=== PATIENT | male | born 1960 | race Caucasian/White ===

== ENCOUNTER 2016-10-19 23:17 | Emergency (ER) | payer BC ==
[~2016-10-19] VITALS: Ht 172.7 cm; Wt 104.3 kg
[2016-10-19 23:20] VITALS: BP 155/93
--- NOTE | 2016-10-19 23:49 | NUR ---
TO ER BED 4
--- NOTE | 2016-10-19 23:52 | NUR ---
PATIENT PRESENTS TO ED WITH RUQ ABD PAIN . PT STATES HE CURRENTLY IS NAUSEOUS AND HAS HAD THE SHAPR, CONSTANT ABD PAIN SINCE YESTERDAY. PT REPORTS HAVING A REGULAR BOWEL MOVEMENT X2 TODAY . DENIES V/D; SKIN IS PINK/WARM/DRY; AAOX4 WITH EVEN AND STEADY GAIT; LUNGS CLEAR BL; HR EVEN AND REGULAR; PT DENIES ANY FEVER, CP, SOB, OR COUGH AT THIS TIME; PATIENT STATES PAIN OF 9/10 AT THIS TIME; VSS; PATIENT POSITIONED FOR COMFORT; HOB ELEVATED; BEDRAILS UP X2; BED DOWN. ER MD MADE AWARE OF PT STATUS. AT BEDSIDE
[2016-10-19] MEDS ORDERED: NACL 0.9% 500 ML IV ONE ×2 (23:53)
[2016-10-19] MEDS ORDERED: KETOROLAC 30 MG/ML VIAL IVP ONE (23:55)
[2016-10-19] MEDS ORDERED: ONDANSETRON 4 MG/2 ML VIAL IVP ONE (23:55)
--- NOTE | 2016-10-20 00:26 | NUR ---
PT TO CT
--- NOTE | 2016-10-20 00:41 | NUR ---
PT RETURNED FROM CT
[2016-10-20] MEDS ORDERED: fentaNYL 0.05 MG/ML VIAL IVP ONE (01:05)
[2016-10-20 03:55] VITALS: BP 150/90
--- NOTE | 2016-10-20 03:56 | NUR ---
Patient discharged with v/s stable. Written and verbal after care instructions given and explained. Patient alert, oriented and verbalized understanding of instructions. Ambulatory with steady gait. All questions addressed prior to discharge. ID band removed. Patient advised to follow up with PMD. Rx of TRAMADOL AND ZOFRAN given. Patient educated on indication of medication including possible reaction and side effects. Opportunity to ask questions provided and answered. CONFIRMED WITH PT AND THAT WILL DRIVE PT HOME AT THIS TIME IV removed, catheter intact and site benign. Applied folded 4x4 gauze and tape to stop bleeding.
== END 2016-10-20 03:55 | disposition home or self-care (01) ==
LOC: MED 23:17
DX: R10.9 Unspecified abdominal pain (principal); J45.909 Unspecified asthma, uncomplicated; I10 Essential (primary) hypertension; E11.9 Type 2 diabetes mellitus without complications
CPT/HCPCS: 36415; 74176; 76705; 80053; 82948; 83690; 85025; 96361; 96374; 96375; 99285; J1885; J2405; J3010; J7030; Q0092